=== PATIENT | female | born 1995 | race Caucasian/White ===

== ENCOUNTER 2022-03-29 12:06 | Emergency (ER) | payer OTHER ==
[2022-03-29] MEDS ORDERED: MEDROL 4MG DOSEP4 MG PO (15:20)
[2022-03-29] MEDS ORDERED: DUONEB 2.5-0.5M1 AMP NEB (15:20)
== END 2022-03-29 15:31 | disposition home or self-care (01) ==
LOC: FER 12:06
DX: J45.901 Unspecified asthma with (acute) exacerbation (principal); E11.9 Type 2 diabetes mellitus without complications; Z88.0 Allergy status to penicillin; Z88.8 Allergy status to other drugs, medicaments and biological substances
CPT/HCPCS: 71046; 94640